=== PATIENT | female | born 1995 | race Caucasian/White ===

== ENCOUNTER 2023-09-26 05:31 | Inpatient (IN) ==
[2023-09-26] MEDS: Lactated Ringers 1000 ml BAG 1,000 ML IV ONE (06:40)
[2023-09-26 06:46] LABS: ABS Lymphocytes 1.6 10^3/uL (1.0-4.8); ABS Monocytes 0.6 10^3/uL (0.0-0.9); ABS Neutrophils 5.2 10^3/uL (1.5-7.6); Eosinophil % 0.3 %; Hematocrit 30.6 % (35-45); Hemoglobin 10.4 g/dL (11.5-14.3); Lymphocyte % 21.8 %; Mean Corpuscular Hemoglobin 26.9 pg (27-33); Mean Corpuscular Hgb Conc 33.8 g/dL (31-36); Mean Corpuscular Volume 79.6 fL (80-97); Mean Platelet Volume 9.2 fL (7.5-11.2); Nucleated Red Blood Cells % 0.1 %/100WBC (0.0-0.8); Platelet Count 207 10^3/uL (150-450); Red Blood Count 3.84 10^6/uL (3.63-4.92); Red Cell Distribution Width 13.7 % (12-17); White Blood Count 7.4 10^3/uL (3.8-11.8)
[2023-09-26] MEDS ORDERED: Ondansetron 4 mg VIAL 2 MG/ML 2 ml VIAL ONE (07:33)
[2023-09-26] MEDS ORDERED: Oxytocin 10 UNITS/ML 1 ML VIAL ONE (07:33)
[2023-09-26] MEDS ORDERED: Morphine PF AMP (0.5MG/ML) 5 MG/10 ML AMP ONE (07:33)
[2023-09-26] MEDS ORDERED: Phenylephrine IV 10 MG/ML 1 ml VIAL ONE (07:35)
[2023-09-26] MEDS ORDERED: Bupivacaine-MPF SPINAL 7.5 MG/ML - 2ML AMP ONE (07:37)
[2023-09-26] MEDS: Lactated Ringers 1000 ml BAG 1,000 ML IV SCH (07:41)
[2023-09-26] MEDS: Sodium Citrate/Citric Acid LIQ 15 ML UDC PO ONE (07:41)
[2023-09-26] MEDS: Buffered Lidocaine 1% SYRIN 1 ml INTRADERM ONE (07:42)
[2023-09-26] MEDS ORDERED: fentaNYL 250 mcg/5 ml 50 MCG/ML 5 ml VIAL (250 MCG) ONE (08:36)
[2023-09-26 08:47] LABS: Urine Appearance Clear; Urine Bilirubin Negative (Negative); Urine Blood Negative (Negative); Urine Color Colorless; Urine Glucose Negative (Negative); Urine Ketones 1+ (Negative); Urine Nitrite Negative (Negative); Urine Protein Negative (Negative); Urine Urobilinogen Negative (Negative); Urine pH 6.5 (5.0-8.0)
[2023-09-26] MEDS ORDERED: Propofol 10 MG/ML 20 ML BTL ONE (08:52)
[2023-09-26] MEDS ORDERED: Lidocaine 2% PF 10 ML AMP (OR) ONE (08:52)
[2023-09-26] MEDS ORDERED: fentaNYL 100 mcg/2 ml 50 MCG/ML VIAL ONE (08:54)
[2023-09-26] MEDS ORDERED: Naloxone 0.4 mg VIAL 0.4 mg/ml 1 ml VIAL IV PUSH PRN (09:16)
[2023-09-26] MEDS ORDERED: Acetaminophen IV 1 GM/100ML 1,000 MG/100 ML BAG IV PRN (09:16)
[2023-09-26] MEDS ORDERED: Witch Hazel PAD JAR TOPICAL PRN (09:40)
[2023-09-26] MEDS ORDERED: Glycerin ADULT 2.4 gm SUPP PR PRN (09:40)
[2023-09-26] MEDS ORDERED: Dibucaine 1% OINT 28.35 GM TUBE PR PRN (09:40)
[2023-09-26] MEDS ORDERED: Lactated Ringers 1000 ml BAG 1,000 ML IV SCH (10:00)
[2023-09-26] MEDS: Metoclopramide 5 MG/ML VIAL (10 mg) IV PRN (12:01)
[2023-09-26] MEDS: Oxytocin in LR 20,000 MILLI.UNIT/1,000 ML BAG IV SCH (12:13)
[2023-09-26 14:15] LABS: Urine Benzodiazepine Screen None Detected (None Detect); Urine Cannabinoids Screen None Detected (None Detect); Urine Opiates Screen None Detected (None Detect)
[2023-09-26 14:23] LABS: Hemoglobin 9.5 g/dL (11.5-14.3); Mean Corpuscular Hemoglobin 27.1 pg (27-33); Mean Corpuscular Hgb Conc 33.8 g/dL (31-36); Mean Corpuscular Volume 80.2 fL (80-97); Mean Platelet Volume 8.5 fL (7.5-11.2); Platelet Count 172 10^3/uL (150-450); Red Blood Count 3.49 10^6/uL (3.63-4.92); Red Cell Distribution Width 13.8 % (12-17); White Blood Count 11.4 10^3/uL (3.8-11.8)
[2023-09-26] MEDS: ceFOXitin 2 GM IVPREMIX 2 GM/50 ML BAG IVPB ONE (19:59)
[2023-09-26] MEDS: Ondansetron 4 mg VIAL 2 MG/ML 2 ml VIAL IV PRN (21:19)
[2023-09-27 07:53] LABS: ABS Lymphocytes 1.2 10^3/uL (1.0-4.8); ABS Monocytes 0.7 10^3/uL (0.0-0.9); ABS Neutrophils 7.1 10^3/uL (1.5-7.6); Eosinophil % 0.4 %; Hematocrit 26.4 % (35-45); Hemoglobin 8.9 g/dL (11.5-14.3); Lymphocyte % 13.1 %; Mean Corpuscular Hgb Conc 33.8 g/dL (31-36); Mean Corpuscular Volume 79.7 fL (80-97); Mean Platelet Volume 8.9 fL (7.5-11.2); Platelet Count 165 10^3/uL (150-450); Red Blood Count 3.31 10^6/uL (3.63-4.92); Red Cell Distribution Width 13.9 % (12-17); White Blood Count 9.1 10^3/uL (3.8-11.8)
[2023-09-27] MEDS: Ondansetron ODT 4 mg TAB 4 MG TAB PO PRN (23:07)
[2023-09-28 08:08] VITALS: BP 141/79
== END 2023-09-28 10:56 | disposition home or self-care (01) | DRG 540 ==
LOC: MCHOB 05:31
PROVIDERS: ADMIT Obstetrics & Gynecology; ATTEND Obstetrics & Gynecology